=== PATIENT | male | born 1960 | race Caucasian/White ===

== ENCOUNTER → 2017-06-06 | Outpatient (CLI) | payer OTHER ==
[~2017-06-06] MED LIST: ATOR20TA9 PO; LISI40TA PO
[2017-06-06 12:11] LABS: ALBUMIN 3.6 g/dL (3.4-5.0); ANION GAP 5 mmol/L (5-15); CALCIUM 8.4 mg/dL (8.5-10.1); CHLORIDE 109 mmol/L (98-107)
[2017-06-06 12:15] LABS: ALANINE AMINOTRANSFERASE 37 U/L (12-78); ALKALINE PHOSPHATASE 66 U/L (45-117); BILIRUBIN,TOTAL 0.6 mg/dL (0.2-1.0); CREATININE 1.07 mg/dL (0.7-1.3); TOTAL PROTEIN 7.3 g/dL (6.4-8.2)
== END | disposition home or self-care (01) ==
LOC: STAR 11:11
PROVIDERS: ATTEND Orthopaedic Surgery
DX: Z01.818 Encounter for other preprocedural examination (principal); M75.21 Bicipital tendinitis, right shoulder; M75.121 Complete rotator cuff tear or rupture of right shoulder, not specified as traumatic
CPT/HCPCS: 36415; 80053

== ENCOUNTER 2017-06-10 05:50 | Observation (INO) | payer OTHER ==
[~2017-06-10] VITALS: Ht 182.9 cm; Wt 106.8 kg
[2017-06-10] MEDS ORDERED: cloniDINE/PF 100 MCG/ML, 10 ML ONE (06:22)
[2017-06-10] MEDS ORDERED: LACTATED RINGERS 1,000 ML IV SCH (06:49)
[2017-06-10 06:51] VITALS: BP 128/86
[2017-06-10] MEDS ORDERED: LIDOCAINE-MPF 1%, 2ML INFIL ONE (07:00)
[2017-06-10] MEDS ORDERED: EPINEPHRINE 1 MG/ML, 1ML ONE (07:07)
[2017-06-10] MEDS ORDERED: LIDOCAINE 1%, 50ML ONE ×2 (07:07→08:17)
[2017-06-10] MEDS ORDERED: DEXAMETHASONE 4 MG/ML, 1ML ONE (07:09)
[2017-06-10] MEDS ORDERED: PROPOFOL 10 MG/ML, 20ML ONE (07:09)
[2017-06-10] MEDS ORDERED: FENTANYL PF 100 MCG/2ML ONE ×2 (07:09→09:05)
[2017-06-10] MEDS ORDERED: CEFAZOLIN 1,000 MG ONE (07:09)
[2017-06-10] MEDS ORDERED: ONDANSETRON 2MG/ML, 2ML ONE (07:09)
[2017-06-10] MEDS ORDERED: MIDAZOLAM 1 MG/ML, 2ML ONE (07:09)
[2017-06-10] MEDS ORDERED: LIDOCAINE GEL 2%, 5ML ONE (07:17)
[2017-06-10] MEDS ORDERED: LIDOCAINE-MPF 2% ,5ML ONE (07:17)
[2017-06-10] MEDS ORDERED: BUPIVACAINE/PF 0.5% ONE (07:17)
[2017-06-10] MEDS ORDERED: CLINDAMYCIN 150 MG/ML, 6ML ONE (07:55)
[2017-06-10] MEDS ORDERED: MEPERIDINE/PF 25MG/0.5ML IVPush PRN (09:00)
[2017-06-10] MEDS ORDERED: DIAZEPAM 5 MG/ML, 2ML IVPush PRN (09:00)
[2017-06-10] MEDS ORDERED: ONDANSETRON 2MG/ML, 2ML IVPush PRN ×2 (09:00→18:30)
[2017-06-10] MEDS ORDERED: PROMETHAZINE 25 MG/ML, 1ML IV PRN (09:00)
[2017-06-10] MEDS ORDERED: hydrALAzine 20 MG/ML, 1ML IV PRN (09:00)
[2017-06-10] MEDS ORDERED: HYDROmorphone 1 MG/ML, 1ML IV PRN (09:00)
[2017-06-10] MEDS ORDERED: ALBUTEROL SULFATE 2.5 MG/3 ML NPPB PRN ×2 (09:00→20:30)
[2017-06-10] MEDS ORDERED: PROMETHAZINE 12.5 MG SUPP PR PRN (09:00)
[2017-06-10] MEDS ORDERED: MIDAZOLAM 1 MG/ML, 2ML IV PRN (09:00)
[2017-06-10] MEDS ORDERED: ALBUTEROL/IPRATROPIUM 2.5MG/0.5MG, 3 ML NPPB PRN (09:00)
[2017-06-10] MEDS ORDERED: LABETALOL 5MG/ML, 20ML IV PRN (09:00)
[2017-06-10] MEDS ORDERED: OXYcodone 5 MG/5 ML ORAL.SOL UDC ONE (09:05)
[2017-06-10] MEDS ORDERED: ACETAMINOPHEN 650 MG/20.3 ML UDC ONE (09:05)
[2017-06-10] MEDS: ACETAMINOPHEN 325 MG TABLET PO PRN ×2 (09:30→09:39)
[2017-06-10] MEDS: OXYcodone 5 MG/5 ML ORAL.SOL UDC PO PRN ×2 (09:30→09:39)
[2017-06-10] MEDS: FENTANYL PF 100 MCG/2ML IV PRN ×2 (09:40→09:53)
[2017-06-10] MEDS ORDERED: SUCCINYLCHOLINE 20 MG/ML, 10ML ONE (10:52)
[2017-06-10] MEDS ORDERED: ROCURONIUM 10 MG/ML,10ML ONE (10:52)
[2017-06-10] MEDS ORDERED: KETOROLAC 30 MG/1 ML ONE (10:52)
[2017-06-10] MEDS ORDERED: EPHEDRINE 50 MG/ML, 1ML ONE (10:52)
[2017-06-10 17:53] LABS: FIO2 RA %
[2017-06-10] MEDS ORDERED: OXYcodone/APAP 5/325MG TABLET PO PRN ×2 (18:30→19:30)
[2017-06-10 18:40] VITALS: BP 114/54
[2017-06-10] MEDS ORDERED: ONDANSETRON 2MG/ML, 2ML IV PRN (19:30)
[2017-06-10] MEDS ORDERED: MORPHINE SULFATE 4 MG/ML, 1ML IV PRN (19:30)
[2017-06-10] MEDS ORDERED: PROMETHAZINE 25 MG/ML, 1ML IM PRN (19:30)
[2017-06-10] MEDS ORDERED: ACETAMINOPHEN 325 MG TABLET PO PRN (19:30)
[2017-06-10] MEDS ORDERED: ATORVASTATIN 20 MG TABLET PO SCH (21:00)
[2017-06-10] MEDS: KETOROLAC 30 MG/1 ML IV SCH (21:34)
[2017-06-10] MEDS: SODIUM CHLORIDE 0.9% 1,000 ML IV SCH (21:36)
[2017-06-10 23:24] VITALS: BP 111/60
[2017-06-11 03:57] VITALS: BP 117/60
[2017-06-11] MEDS: SODIUM CHLORIDE 0.9% 1,000 ML IV SCH (05:30)
[2017-06-11 07:50] VITALS: BP 113/62
[2017-06-11] MEDS: KETOROLAC 30 MG/1 ML IV SCH (08:03)
[2017-06-11] MEDS ORDERED: LISINOPRIL 20 MG TABLET PO SCH (09:00)
== END 2017-06-11 10:27 | disposition home or self-care (01) ==
LOC: OUT 05:50 → 4NOR 18:34 → OUT 22:03 → 4NOR 22:14 → DCLOUNGE 06-11 10:20
PROVIDERS: ADMIT Orthopaedic Surgery; ATTEND Orthopaedic Surgery
DX: M65.811 Other synovitis and tenosynovitis, right shoulder (principal); M25.811 Other specified joint disorders, right shoulder; M75.101 Unspecified rotator cuff tear or rupture of right shoulder, not specified as traumatic
CPT/HCPCS: 29820; 29822; 29827; 29828; 36600; 71045; 82803; 94640; 96374; 96376; C1713; G0378; J0171; J0330; J0690; J0735; J1100; J1885; J2250; J2405; J2704; J3010; J3490; J7030; J7120; J7620